=== PATIENT | male | born 1965 | race Caucasian/White ===

== ENCOUNTER 2018-06-25 19:07 | Observation (INO) ==
[2018-06-25 19:41] LABS: Basophils # 0.1 10*3/uL (0.0-0.2); Basophils % 0.5 % (0.0-0.8); Eosinophils # 0.1 10*3/uL (0.0-0.87); Eosinophils % 0.5 % (0.00-10.9); Hematocrit 40.6 VOL% (42.0-52.0); Hemoglobin 13.4 GM/DL (14.0-18.0); Immature Granulocytes % 0.3 %; Immature Granulocytes Absolute 0.03 #; Lymphocytes # 2.3 10*3/uL (1.4-4.0); Lymphocytes % 22.7 % (21.2-54.2); Mean Corpuscular Hemoglobin 29 PG (27-34); Mean Platelet Volume 9.9 FL (9.6-12.0); Monocytes # 1.4 10*3/uL (0.11-0.8); Monocytes % 13.7 % (1.7-12.7); Neutrophils # 6.2 10*3/uL (1.4-7.4); Neutrophils % 62.3 % (38.7-73.9); Platelet Count 268 T/CUMM (130-400); Red Blood Count 4.56 MC/CUMM (3.8-5.5); White Blood Count 9.9 T/CUMM (4-12)
[2018-06-25 19:50] LABS: INR 0.9; PT Patient Result 9.7 SECS
[2018-06-25] MEDS ORDERED: NITROGLYCERIN SL 0.4 MG TABLET SL STA (19:53)
[2018-06-25] MEDS ORDERED: ASPIRIN CHEW 81 MG TABLET PO STA (19:53)
[2018-06-25 20:04] LABS: Alanine Aminotransferase 44 U/L (16-61); Albumin 3.3 G/DL (3.4-5.0); Alkaline Phosphatase 79 U/L (45-117); Aspartate Amino Transferase 33 U/L (0-37); Bilirubin,Total < 0.39 MG/DL (0.2-1.0); Blood Urea Nitrogen 20 MG/DL (7-18); Calcium 8.9 MG/DL (8.5-10.1); Glucose 109 MG/DL (74-106); Osmolality,Calculated 276.8 MOS/KG (273-304); Potassium 4.3 MMOL/L (3.5-5.1); Sodium 137 MMOL/L (136-145); Total Protein 7.4 G/DL (6.4-8.3)
[2018-06-25] MEDS ORDERED: PANTOPRAZOLE 40 MG VIAL IV STA (20:30)
[2018-06-25] MEDS ORDERED: ALUM/MAG/SIMETH/LIDO VISC 1:1 30 ML BOTTLE PO STA (20:30)
[2018-06-25] MEDS ORDERED: MORPHINE 4 MG/1 ML VIAL IV STA (20:30)
[2018-06-25] MEDS ORDERED: ONDANSETRON 4 MG/2 ML VIAL IV STA (20:30)
[2018-06-25] MEDS ORDERED: ONDANSETRON 4 MG/2 ML VIAL ONE (20:32)
[2018-06-25] MEDS ORDERED: PANTOPRAZOLE 40 MG VIAL IV ONE (20:32)
[2018-06-25] MEDS ORDERED: MORPHINE 4 MG/1 ML VIAL ONE (20:33)
[2018-06-25] MEDS ORDERED: ALUMINUM/MAGNES/SIMETH MAX STR 30 ML UDCUP ONE (20:33)
[2018-06-25] MEDS ORDERED: ALUMINUM/MAGNES/SIMETH MAX STR 30 ML UDCUP PO STA (20:35)
[2018-06-25] MEDS ORDERED: NITROGLYCERIN SL 0.4 MG TABLET SL PRN (21:52)
[2018-06-25] MEDS ORDERED: DOCUSATE SODIUM 100 MG CAPSULE PO PRN (21:56)
[2018-06-25] MEDS ORDERED: ONDANSETRON 4 MG/2 ML VIAL IV PRN (21:56)
[2018-06-25 22:25] LABS: Amorphous Crystals,Urine Occasional /HPF (Few); Apearance,Urine Slightly Hazy (Clear); Bilirubin,Urine Negative (Negative); Blood, Urine Small mg/dL (Negative); Glucose,Urine (UA) Negative (Negative); Ketones,Urine Negative (Negative); Mucus,Urine Occasional /LPF (Occasional); Nitrite,Urine Negative (Negative); Protein,Urine Negative; RBC,Urine <1 /HPF (0-4); Urine Color Yellow (Yellow); Urine Specific Gravity 1.012 (1.001-1.035); Urine Urobilinogen < 2.0 EU/DL (0.2-1.0); WBC,Urine <1 /HPF (0-6)
[2018-06-25] MEDS ORDERED: HydrOXYzine PAMOATE 25 MG CAPSULE PO PRN (22:26)
[2018-06-25] MEDS: ZALEPLON 5 MG CAPSULE PO PRN (23:45)
[2018-06-26 01:31] LABS: Basophils # 0.1 10*3/uL (0.0-0.2); Basophils % 0.5 % (0.0-0.8); Eosinophils # 0.1 10*3/uL (0.0-0.87); Eosinophils % 0.8 % (0.00-10.9); Hematocrit 39.2 VOL% (42.0-52.0); Hemoglobin 12.6 GM/DL (14.0-18.0); Immature Granulocytes % 0.2 %; Immature Granulocytes Absolute 0.02 #; Lymphocytes # 2.7 10*3/uL (1.4-4.0); Lymphocytes % 27.2 % (21.2-54.2); Mean Corpuscular HGB Conc 32.1 GM/DL (32-36); Mean Corpuscular Hemoglobin 29 PG (27-34); Mean Corpuscular Volume 89.7 FL (87-102); Mean Platelet Volume 9.3 FL (9.6-12.0); Monocytes # 1.4 10*3/uL (0.11-0.8); Monocytes % 14.2 % (1.7-12.7); Neutrophils # 5.8 10*3/uL (1.4-7.4); Neutrophils % 57.1 % (38.7-73.9); Platelet Count 252 T/CUMM (130-400); Red Blood Count 4.37 MC/CUMM (3.8-5.5); Red Cell Distribution Width 15.1 % (9.3-17.3); White Blood Count 10.1 T/CUMM (4-12)
[2018-06-26 02:05] LABS: Calcium 8.4 MG/DL (8.5-10.1); Potassium 4.2 MMOL/L (3.5-5.1); Risk Ratio 2.6; VLDL CHOLESTEROL 13.4 MG/DL
[2018-06-26] MEDS: MORPHINE 4 MG/1 ML VIAL IV PRN ×2 (02:10→06:10)
[2018-06-26] MEDS: CLOPIDOGREL 75 MG TABLET PO SCH (09:23)
[2018-06-26] MEDS: ENOXAPARIN 40 MG/0.4 ML SYRINGE SUBCUT SCH (09:23)
[2018-06-26] MEDS: ASPIRIN EC 81 MG TABLET PO SCH (09:23)
[2018-06-26] MEDS: FLUoxetine 20 MG CAPSULE PO SCH (09:23)
[2018-06-26] MEDS: PANTOPRAZOLE 40 MG TABLET PO SCH (09:23)
[2018-06-26] MEDS ORDERED: SIMVASTATIN 20 MG TABLET PO SCH (18:00)
[2018-06-26] MEDS: ZALEPLON 5 MG CAPSULE PO PRN (23:13)
[2018-06-27 04:38] LABS: Osmolality,Calculated 271.1 MOS/KG (273-304); Potassium 4.3 MMOL/L (3.5-5.1)
[2018-06-27 05:12] LABS: Basophils # 0.1 10*3/uL (0.0-0.2); Eosinophils # 0.1 10*3/uL (0.0-0.87); Eosinophils % 1.4 % (0.00-10.9); Hematocrit 42.7 VOL% (42.0-52.0); Hemoglobin 13.7 GM/DL (14.0-18.0); Immature Granulocytes % 0.4 %; Immature Granulocytes Absolute 0.03 #; Lymphocytes # 2.6 10*3/uL (1.4-4.0); Mean Corpuscular HGB Conc 32.1 GM/DL (32-36); Mean Corpuscular Hemoglobin 29 PG (27-34); Mean Corpuscular Volume 90.1 FL (87-102); Mean Platelet Volume 9.9 FL (9.6-12.0); Monocytes # 1.3 10*3/uL (0.11-0.8); Monocytes % 15.7 % (1.7-12.7); Neutrophils # 4.2 10*3/uL (1.4-7.4); Neutrophils % 50.5 % (38.7-73.9); Platelet Count 296 T/CUMM (130-400); Red Blood Count 4.74 MC/CUMM (3.8-5.5); Red Cell Distribution Width 14.9 % (9.3-17.3); White Blood Count 8.4 T/CUMM (4-12)
[2018-06-27 07:35] LABS: Band Neutrophils 4 % (0-10); Eosinophils 2 % (0-10); Lymphocytes 43 % (20-55); Platelet Estimate Normal; Segmented Neutrophils 41 % (50-85); Target Cells Few; Total Cells Counted 100
[2018-06-27 07:36] LABS: Anisocytosis Slight
[2018-06-27] MEDS: CLOPIDOGREL 75 MG TABLET PO SCH (08:58)
[2018-06-27] MEDS: FLUoxetine 20 MG CAPSULE PO SCH (08:58)
[2018-06-27] MEDS: ENOXAPARIN 40 MG/0.4 ML SYRINGE SUBCUT SCH (08:58)
[2018-06-27] MEDS: PANTOPRAZOLE 40 MG TABLET PO SCH (08:58)
[2018-06-27] MEDS: ASPIRIN EC 81 MG TABLET PO SCH (08:58)
[2018-06-27 13:00] VITALS: BP 115/78
== END 2018-06-27 16:45 ==
LOC: EDUNIT# → EDBD → N.EDINP 19:07 → N.ED 19:07 → SUATTDRO 21:24 → N.TELES 21:47
PROVIDERS: ADMIT Emergency Medicine; ATTEND Hospitalist